=== PATIENT | female | born 1985 | race African-American/Black ===

== ENCOUNTER 2017-12-10 09:25 | Emergency (ER) | payer BC, SELFPAY ==
[2017-12-10] MEDS ORDERED: Ibuprofen 200 MG TAB ONE (10:39)
[2017-12-10] MEDS ORDERED: Dexamethasone 10 MG/ML VIAL ONE (10:40)
== END 2017-12-10 11:26 | disposition home or self-care (01) ==
LOC: ERS 09:25
DX: J02.8 Acute pharyngitis due to other specified organisms (principal)
CPT/HCPCS: 99282; J1100

== ENCOUNTER 2024-03-25 19:28 | Emergency (ER) | payer BC ==
[2024-03-25 21:17] LABS: #Basophils 0.03 10x3/uL (0.0-0.2); %Basophils 0.4 % (0.0-1.0); %Eosinophils 4.1 % (0.0-10.0); %Lymphocytes 37.4 % (21.0-51.0); %Monocytes 7.2 % (0.0-10.0); %Neutrophils 50.8 % (42.0-75.0); Hematocrit 40.9 % (36.0-47.0); Hemoglobin 13.6 g/dL (12.0-16.0); Mean Corpuscular HGB CONC 33.3 g/dL (32.0-36.0); Mean Corpuscular Hemoglobin 25.6 pg (27.0-31.0); Mean Platelet Volume 10.6 fL (7.4-10.4); Platelet Count 240 10x3/uL (130-400); RBC Distribution Width 13.8 % (11.5-14.5); Red Blood Cell (RBC) Count 5.31 mill/uL (4.20-5.40)
[2024-03-25 21:29] LABS: ALT (SGPT) 43 U/L (8-55); AST (SGOT) 28 U/L (5-34); Albumin 4.1 g/dL (3.5-5.0); Alkaline Phosphatase 83 U/L (40-110); Anion Gap 15 mmol/L (10-20); BUN (Urea Nitrogen) 6 mg/dL (7.0-18.7); Bilirubin, Total 0.3 mg/dL (0.2-1.2); Calc. Creatinine Clearance 0 mL/min (70-130); Calcium 9.6 mg/dL (7.8-10.44); Carbon Dioxide 25 mmol/L (22-29); Chloride 105 mmol/L (98-107); Estimated GFR 116; Globulin 3.9 g/dL (2.4-3.5); Glucose 85 mg/dL (70-105); Potassium 3.8 mmol/L (3.5-5.1); Sodium 141 mmol/L (136-145)
[2024-03-25] MEDS ORDERED: predniSONE 20 MG TAB ONE ×2 (21:31→21:34)
[2024-03-25] MEDS ORDERED: Cyclobenzaprine 10 MG TAB ONE ×2 (21:31→21:33)
[2024-03-25] MEDS ORDERED: Ketorolac Tromethamine 30 MG (1 mL) VIAL ONE ×2 (21:31→21:34)
[2024-03-25 21:36] LABS: Troponin I Less than 0.010 ng/mL (< 0.028)
== END 2024-03-25 22:28 | disposition home or self-care (01) ==
LOC: ERS 19:28
DX: M54.2 Cervicalgia (principal); M79.602 Pain in left arm
CPT/HCPCS: 71045; 80053; 84484; 85025; 93005; 96374; J1885; J7512

== ENCOUNTER 2024-04-01 10:00 | Outpatient (CLI) | payer BC | END 2024-04-01 10:01 | disposition home or self-care (01) | LOC: BICRAD 10:00 | PROVIDERS: ATTEND Nurse Practitioner Family | DX: M47.22 Other spondylosis with radiculopathy, cervical region (principal) | CPT/HCPCS: 72050 ==

== ENCOUNTER 2024-05-09 07:36 | Outpatient (CLI) | payer BC | END 2024-05-09 07:37 | disposition home or self-care (01) | LOC: BICULT 07:36 | PROVIDERS: ATTEND Nurse Practitioner Family | DX: R74.8 Abnormal levels of other serum enzymes (principal); K76.0 Fatty (change of) liver, not elsewhere classified; Z90.49 Acquired absence of other specified parts of digestive tract | CPT/HCPCS: 76705 ==